=== PATIENT | male | born 1965 | race Caucasian/White ===

== ENCOUNTER 2017-07-08 19:33 | Emergency (ER) | payer OTHER, MEDICAID ==
[~2017-07-08] VITALS: Ht 177.8 cm; Wt 79.4 kg
[~2017-07-08 19:33] MED LIST: ASPI-231 PO; BUSP15TA60 PO; DEXL60CA3 PO; DICL75TA2 PO; DOXE50CA57 PO; GABA300C10 PO; METF-489 PO; NOR10T PO; ROSU10TA16 PO; TOPI100T68 PO
[2017-07-08 20:09] LABS: Basophils # (auto) 0.1 uL; Basophils % (auto) 1.3 % (0.0-2.0); Eosinophils # (auto) 0.1 uL; Hematocrit 46.9 % (41.0-53.0); Hemoglobin 15.8 g/dL (13.5-17.5); Lymphocytes % (auto) 16.2 % (10.0-50.0); Mean Corpuscular Hemoglobin 28.7 pg (28.0-32.0); Mean Corpuscular Hgb Conc. 33.7 g/dL (32.0-36.0); Mean Corpuscular Volume 85.2 fL (80.0-100.0); Monocytes # (auto) 0.4 uL; Neutrophils # (auto) 4.5 uL; Neutrophils % (auto) 75.5 % (37.0-80.0); Nucleated Red Blood Cells % 0.2 %; Platelet Count (auto) 192 10^3/uL (140-450); Red Blood Cells 5.51 10^6/uL (4.5-5.90); Red Cell Distribution Width 13.1 % (11.8-14.3)
[2017-07-08 20:29] LABS: Albumin 4.4 g/dL (3.4-5.0); Bilirubin, Total 0.3 mg/dL (0.2-1.0); Calcium 8.4 mg/dL (8.5-10.1); Potassium 3.5 mmol/L (3.5-5.1); Total Protein 7.6 g/dL (6.4-8.2)
[2017-07-08 20:51] VITALS: BP 146/93
== END 2017-07-08 22:54 | disposition home or self-care (01) ==
LOC: EDBD 19:33 → ER 19:34
DX: T59.811A Toxic effect of smoke, accidental (unintentional), initial encounter (principal); J45.909 Unspecified asthma, uncomplicated; E11.9 Type 2 diabetes mellitus without complications; Z79.899 Other long term (current) drug therapy; Z88.0 Allergy status to penicillin; Z88.8 Allergy status to other drugs, medicaments and biological substances; Z79.82 Long term (current) use of aspirin; Y92.89 Other specified places as the place of occurrence of the external cause
CPT/HCPCS: 36415; 71045; 80053; 85025; 93005

== ENCOUNTER 2017-09-10 19:57 | Emergency (ER) | payer OTHER, MEDICAID ==
[~2017-09-10] VITALS: Ht 167.6 cm; Wt 63.5 kg
[2017-09-10 20:30] VITALS: BP 158/102
[2017-09-10] MEDS ORDERED: HYDROcodone-ACET 10/325MG TAB PO ONE (20:30)
[2017-09-10] MEDS ORDERED: TETANUS-DIPTH-ACEL PERTUSSIS 0.5ML SYRG IM ONE (20:30)
[2017-09-10] MEDS ORDERED: NEOMYCIN-BACITRACIN-POLYM UNITDOSE PKG TOP OINT TOP ONE (22:45)
== END 2017-09-10 23:14 | disposition home or self-care (01) ==
LOC: ER 19:57 → EDBD 19:57 → ER 23:14
DX: S93.401A Sprain of unspecified ligament of right ankle, initial encounter (principal); S70.11XA Contusion of right thigh, initial encounter; S80.11XA Contusion of right lower leg, initial encounter; S80.811A Abrasion, right lower leg, initial encounter; J45.909 Unspecified asthma, uncomplicated; E11.9 Type 2 diabetes mellitus without complications; Z88.0 Allergy status to penicillin; Z88.2 Allergy status to sulfonamides; W22.8XXA Striking against or struck by other objects, initial encounter; Y93.89 Activity, other specified; Y92.89 Other specified places as the place of occurrence of the external cause; Y99.8 Other external cause status
CPT/HCPCS: 73590; 73610; 90471; 90715